=== PATIENT | female | born 1965 | race Caucasian/White ===

== ENCOUNTER 2018-02-23 15:36 | Inpatient (IN) | payer OTHER ==
[~2018-02-23] VITALS: Ht 154.9 cm; Wt 65.3 kg
--- NOTE | ~2018-02-23 | DS ---
[facility] [address] [place], [place] [address] Draft ADMISSION DATE: 03/24/2018 DISCHARGE DATE: 03/26/2018 FINAL DIAGNOSIS: At the time of discharge; avascular necrosis, right femoral head with marked collapse. PROCEDURE: Right total hip arthroplasty. HISTORY OF PRESENT ILLNESS: Family has a long history of right-sided hip pain. 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 Because she no longer got adequate relief with conservative management, she was brought to the hospital for an elective total hip arthroplasty. HOSPITAL COURSE: The patient was admitted to Day Surgery on March 24, 2018. She was taken to the operating room, where she underwent an uneventful press-fit right total hip arthroplasty using a Lincoln stem and a pinnacle cup as outlined in the operative report. Postoperatively, she has done well. She has made steady progress in physical therapy and is currently off all for a parenteral analgesics and is doing well with oral pain medication. She is going to be discharged home. Weightbearing as tolerated on the right with total hip precautions. Begin a prescription for Xarelto to be continued for DVT prophylaxis along with Oxy IR alternating with Tylenol for pain relief. We will see her back in 6 weeks with an x-ray of the involved hip. MD NEHEMIAH Stanford/MICHAEL /[id number] Copies: ~ PATIENT NAME: MAXX PURI DISCHARGE SUMMARY DATE OF : 61 REPORT #: [id number] PHYSICIAN: VU NGUYEN MD PCP: ROSY BURRELL PAC REPORT IS CONFIDENTIAL AND NOT TO BE RELEASED WITHOUT AUTHORIZATION
[~2018-02-23 15:36] MED LIST: BENTYL10 MG/1 ML IM; BENTYL10 MG/1 ML PO; BUPROPION XL300 MG PO; CIPRO500 MG PO; DICLOFENAC SODI75 MG PO; KLOR-CON20 MEQ PO; TYLENOL WITH C1 EACH PO; ZOFRAN ODT4 MG PO
[2018-03-17] MEDS ORDERED: NORCO 5-325 TA1 EACH PO (14:23)
--- NOTE | 2018-03-24 12:36 | NUR ---
03/24/18 [facility] Clarissa Gordillo 1223-PATIENT ARRIVED TO PACU ON 4L OM O2 SAT 100% RR EVEN. PATIENT REACTIVE TO VOICE OPENS EYES, VERY DROWSY BACK TO SLEEP. ADDUCTOR PILLOW IN PLACE. DRESSING TO RIGHT HIP CDI. RIGHT PALPABLE. PEDAL PULSE GOOD CAP REFILL AND WARMTH. WILL APPLY ICE TO DRESSING. SCDS BILATERAL.
--- NOTE | 2018-03-24 13:30 | NUR ---
PT ARRIVED FROM PACU, BEDSIDE REPORT. PT ALERT ORIENTED FAMILY AT BEDSIDE. PT REPORTS NO PAIN OR NAUSEA.
--- NOTE | 2018-03-24 15:23 | NUR ---
PT TOLERATING REGUALR DIET WELL
--- NOTE | 2018-03-24 16:22 | NUR ---
PT BACK TO BED AFTER AMBUALTING IN HALLS WITH PHYSICAL THERAPY. ONE PERSON WITH FWW. PT REPORTS NO PAIN OR NAUSEA.
--- NOTE | 2018-03-24 16:51 | NUR ---
PT DOES NOT FEEL THE NEED TO VOID, PT BLADDER SCANNED FOR 399ML, PT DOES NOT WANT A DOUGLAS, PT AGREES TO GET OUT OF BED IN ONE HOUR AND ATTEMPT TO VOID. WILL BLADDER SCAN AT THAT TIME IF UNABLE TO VOID
--- NOTE | 2018-03-24 17:01 | NUR ---
PT ARRIVED FROM PACU AT 1330. NO PAIN OR NAUSEA, TOLERATING REGULAR DIET, S/L, SPINAL HAS RESOLVED HAS BEEN UP WITH PHYSICAL THERAPY AMBUALTING IN HALLS. DRESSING TO RIGHT HIP IS C/D/I, V/S STABLE. HAS NOT YET VOIDED, BLADDER SCANNED FOR 399ML, WILL RE-ASSESS IN ONE HOUR. PT REPORTS SHE DOES NOT WANT A DOUGLAS.
--- NOTE | 2018-03-24 18:23 | NUR ---
PT UP TO BATHROOM VOIDED 600ML. ONE PERSON ASSIST WITH FWW. TOLERATED ACTIVITY WELL. PT REPORTS NO PAIN OR NAUSEA AT THIS TIME. DINNER ORDERED
--- NOTE | 2018-03-24 23:21 | NUR ---
PT RESTING IN BED, EYES CLOSED RR16. PT APPEARS TO BE SLEEPING COMEFORTABLY. PT ALERT TO VOICE, GABAPENTIN 300MG AND IV ABX ADMINISTERED. PT DENIES PAIN AT THIS TIME. FRESH ICE PROVIDED. FAMILY AT BEDSIDE. CALL LIGHT AND ICE WATER IN REACH. SCD'S IN PLACE, DSG TO RIGHT HIP CDI.
--- NOTE | 2018-03-25 03:43 | NUR ---
PT STATES SHE DOES NOT FEEL LIKE SHE IS ABLE TO VOID, PT BLADDER SCANNED AND BLADDER SCANNER SHOWS >360MLS. PT ENCOURAGED TO ATTEMPT TO URINATE AND AGREES. 500 MLS OF CONCENTRATED YELLOW URINE OUT AT THIS TIME. CALL LIGHT AND H20 WITHIN REACH AND PT ENCOURAGED TO DRINK MORE WATER. PT PLACED BACK INTO ABDUCTOR PILLOW AND SCDS REAPPLIED. PT GIVEN ICE TO APPLY TO SURGICAL SITE. DSG APPEARS CDI AND LE DISTAL PULSES +2. PT DENIES HAVING ANY CONCERNS OR REQUESTS AT THIS TIME AND PT FAMILY AT BEDSIDE PROVIDED WITH ANOTHER WARM BLANKET.
--- NOTE | 2018-03-25 06:05 | NUR ---
PT RESTING SUPINE IN BED, RR16. PT APPEARS TO BE SLEEPING COMFORTABLY. CALL LIGHT NAD H20 IN REACH.
--- NOTE | 2018-03-25 08:24 | OR ---
[facility] [address], [place] [address] Signed DATE OF OPERATION: 03/24/2018 SURGEON: Vu Nguyen MD PREOPERATIVE DIAGNOSIS: Avascular necrosis, right femoral head with marked collapse. POSTOPERATIVE DIAGNOSIS: Avascular necrosis, right femoral head with marked collapse. PROCEDURE: Right total hip arthroplasty. ANESTHESIA: Spinal with sedation. IMPLANTS: Five high offset Ellis stem with a -236 mm head and a 52 mm Gription [place] sector cup with a 15 and a 20 mm screw and a neutral 36 insert. WHAT WAS DONE: The patient was taken to the operating room. After anesthesia was induced and the airway gently supported, the patient was placed in the left lateral decubitus position and prepped and draped in a routine sterile fashion. A straight lateral approach was made to the right hip. Skin was divided sharply. Subcutaneous tissue was bluntly spread. Hemostasis was achieved with electrocautery. The deep fascia was incised in line with the skin incision and the Charnley retractor was placed. The anterior one-third of the gluteus was elevated off the anterior and superior portion of the greater trochanter and retracted. An anterior and superior capsulectomy were then performed. The hip was dislocated. We then used the oscillating saw to remove the head fragment. Because of severe varus collapse, there was very little neck left medially. We then removed the head and neck fragment with a large curved clamp. We then exposed the acetabulum and removed the remaining capsule and the labrum. We then excised the contents of the pulvinar. We then reamed the acetabulum with sequential hemispherical reamers. We began with a 45 to deepen the acetabulum, which was significantly narrowed and eccentric. We then reamed up to 51 mm trial, however, we are happy with the alignment, position, fit and fill. We therefore removed the trial, impacted the 52 mm Gription cup. Although we had secure fixation, we augmented it with the two screws. We then copiously irrigated the shell and I placed the neutral liner. We then rotated the proximal femur up into the incision. It was prepared with a standard box chisel and Electronically Signed By: VU NGUYEN MD 03/25/18 0824 PATIENT NAME: MAXX PURI OPERATIVE REPORT DATE OF : 61 REPORT #: [id number] PHYSICIAN: VU NGUYEN MD PCP: ROSY BURRELL PAC REPORT IS CONFIDENTIAL AND NOT TO BE RELEASED WITHOUT AUTHORIZATION [facility] [address], [place] [address] Signed reamers and rasps. We had a very snug fit with a size 5 rasps, although there was slight prominence of medially given the angle of the neck resection. We then trialed the hip and we were most happy with a high offset -2 head. They brought this back to a symmetrical leg lengths and was quite stable without any impingement. We then removed the trial components, impacted the real size 5 high offset stem. We then placed the -2 and relocated the hip. Again, we had good alignment, good position, good mobility, and excellent stability. The hip was copiously irrigated and closed in a standard fashion. A sterile dressing was applied. She was awakened and taken to the recovery room where she arrived in stable condition. Vu Nguyen MD WFB/MODL /[id number] Copies: ~ Electronically Signed By: VU NGUYEN MD 03/25/18 0824 PATIENT NAME: MAXX PURI OPERATIVE REPORT DATE OF : 61 REPORT #: [id number] PHYSICIAN: VU NGUYEN MD PCP: ROSY BURRELL PAC REPORT IS CONFIDENTIAL AND NOT TO BE RELEASED WITHOUT AUTHORIZATION
--- NOTE | 2018-03-25 09:02 | NUR ---
PT 1PA WITH WALKER TO RESTROOM AND THEN UP TO RECLINER FROM BED. PT REPORTING 4/10 RIGHT HIP PAIN. MEDICATED WITH PRN DILAUDID. DENIES NAUSEA OR OTHER CONCERNS. ORDERED BREAKFAST. CALL LIGHT WITHIN REACH.
--- NOTE | 2018-03-25 09:29 | NUR ---
PT STATES THAT SHE IS "SO TIRED" AND HAVING SOME PAIN. WOULD LIKE TO GO BACK TO BED." MINIMAL ASSIST FROM RECLINER TO BED. ABDUCTOR PILLOW AND SCD'S IN PLACE. CALL LIGHT WITHIN REACH.
--- NOTE | 2018-03-25 09:55 | NUR ---
MED REC COMPLETE
--- NOTE | 2018-03-25 10:00 | NUR ---
PT WORKING WITH PGeraldo IN ROOM.
--- NOTE | 2018-03-25 11:23 | NUR ---
PATIENT RESTING IN BED WITH EYES CLOSED. PATIENT SEEMS VERY TIRED, DR IN ROOM AT TIME AND SAID SHE WAS GOING TO TALK TO RN ABOUT TIRDNESS. WASHCLOTH GIVEN. PATIENT REFUSED OTHER ADLS AND SAID 'I JUST WANT TO LAY HERE FOR A BIT". FRESHWATER GIVEN. CALL LIGHT IN REACH. NO FURTHER NEEDS AT THIS TIME.
--- NOTE | 2018-03-25 11:45 | NUR ---
PT IN BED RESTING WITH EYES CLOSED, RESP EVEN AND UNLABORED. PT AWOKE EASILY TO VOICE. DENIES NEEDS OR CONCERNS AT THIS TIME. AT BEDSIDE. CALL LIGHT WITHIN REACH.
--- NOTE | 2018-03-25 13:16 | NUR ---
PT WAS ALICIA, IN . VISITED WITH HIM, HE WAS PLEASANT, FELT POSITIVE ABOUT PT'S PROGRESS. EXTENDED A BLESSING, WILL FOLLOW NEEDED
--- NOTE | 2018-03-25 13:22 | NUR ---
PT AMB WITH P.T. ASSISTED TO BED. PT RATING PAIN 03/20. MEDICATED WITH SCHEDULED TYLENOL AND PRN DILAUDID. CALL LIGHT WITHIN REACH.
--- NOTE | 2018-03-25 14:31 | NUR ---
PATIENT IN BED, BED SIDE. PAIENT NOT HUNGRY FOR LUNCH. FRESH WATER GIVEN. CALL LIGHT IN REACH. NO FURTHER NEEDS AT THIS TIME.
--- NOTE | 2018-03-25 15:18 | NUR ---
THIS RN IS TAKING PT OVER FOR KURT DEL CID; PT AMBULATED BACK TO HER BED WITH WALKER AND STANDBY ASSIST AT THIS TIME; PT RATES PAIN A 03/20; WILL TREAT PAIN WITH MEDICATION
--- NOTE | 2018-03-25 15:20 | NUR ---
PT AMB WITH SBA AND FWW TO RESTROOM. VOIDED WITHOUT DIFFICULTY. ENCOURAGED PO INTAKE PT HAS BEEN SLEEPING A LOT. EATING A LOT OF OUTSIDE FOOD BROUGHT IN BY FAMILY. DENIES N/V. AMB TO BED, SITTING ON EDGE OF BED WITH FAMILY. REPORT GIVEN TO RIZWANA HICKS.
--- NOTE | 2018-03-25 16:24 | NUR ---
PT PLEASANT, CALM AND COOPERATIVE SINCE TAKING PT OVER EARLIER IN SHIFT FROM OTHER RN. VS AND CONDITION REMAIN STABLE. PRN PAIN MEDICATION ADEQUATELY CONTROLLING PAIN. PT AMBULATED IN HALLWAY WITH SBA AND WALKER AT 1600 (TWO LAPS AROUND THE UNIT). PT STATES SHE IS MOTIVATED TO WORK TOWARDS DC BY WALKING HALLWAY FREQUENTLY. DRG ON RIGHT HIP REMAINS C/D/I WITH ICE PACK IN PLACE FOR COMFORT. SALINE LOCKED IV DUE TO ADEQUATE PO INTAKE; PT HAVING ADEQUATE UOP IN TOILET. LAST BM WAS 03/24/18 AM BEFORE HIP SURGERY. ALL FALL PREVENTION TECHNIQUES IN PLACE, PT CALLS APPROPRIATELY ADMISSIONS GATE ATTENDANT LIGHT. ALL QUESTIONS ANSWERED, EDUCATION REVIEWED REGARDING PT'S STAY. CALL LIGHT AND BELONGINGS WITHIN REACH. BED LOCKED IN LOWEST POSITION. WILL CONTINUE TO MONITOR.
--- NOTE | 2018-03-25 18:13 | NUR ---
PATIENT LAYING IN BED WATCHING TV, BEDSIDE. FRESHWATER GIVEN. CALL LIGHT IN REACH. NO FURTHER NEEDS AT THIS TIME.
--- NOTE | 2018-03-25 19:50 | NUR ---
IN TO ASSESS PT. PT LAYING SUPINE IN BED, PT REPORTS 8/10 PAIN TO RIGHT HIP. OXY 5MG AND SCHEDULED TYLENOL ADMINISTERED. ASSESSMENT COMPLETED. ABDUCTOR PILLOW, SCDS AND ICE APPLIED. DSG CDI TO RIGHT HIP AND CMS INTACT DISTALLY. PT STATES SHE IS COMFORTABLE AND PT GIVEN ICE WATER AND CALL LIGHT IN REACH.
--- NOTE | 2018-03-25 21:01 | NUR ---
VITALS AND I&OS DONE AND CHARTED. FRESH ICE WATER GIVEN. BEDSIDE TABLE AND CALL LIGHT WITHIN REACH. PT NEEDS NOTHING AT THIS TIME WHEN I ASKED HER.
--- NOTE | 2018-03-25 21:18 | NUR ---
HELPED PT TO THE BATHROOM AND BACK TO BED WITH HER FWW. SCD'S , WEDGE AND FRESH ICE PACK GIVEN. PT NEEDS NOTHING MORE AT THIS TIME.
--- NOTE | 2018-03-25 22:11 | NUR ---
PT RESTING SUPINE IN BED CALL IGHT IN REACH. RR18, EYES CLOSED AND PT APPEARS TO BE SLEEPING COMFORTABLY. FAMILY AT BEDSIDE. ABDUCTOR PILLOW, SCD'S AND ICE APPLIED.
--- NOTE | 2018-03-25 23:18 | NUR ---
PT RESTING SUPINE IN BED, RR16, CALL LIGHT AND H20 IN REACH AND PT APPEARS TO BE SLEEPING COMFORTABLY.
--- NOTE | 2018-03-26 01:20 | NUR ---
PT REPORTS 6/10 PAIN TO RIGHT HIP. OXYCODONE 5MG ADMINISTERED. FRESH ICE AND ICE WATER IN REACH. SCD'S ABDUCTOR PILLOW AND ICE APPLIED. WARM BLANKET PROVIDED AND NO FURTHER CONCERNS OR REQUESTS VOICED.
--- NOTE | 2018-03-26 02:04 | NUR ---
HELPED PT TO THE BATHROOM AND BACK TO BED WITH HER FWW. PT REQUESTED PAIN MEDS, I INFORMED HER RN TARYN.
--- NOTE | 2018-03-26 02:07 | NUR ---
FRESH ICE WATER GIVEN PER PT REQUEST.
--- NOTE | 2018-03-26 03:33 | NUR ---
PRN PO OXYCODONE 5MG ADMINISTERED FOR PT REPORT OF 5/10 PAIN TO RIGHT HIP. CALL LIGHT AND ICE WATER IN REACH.
--- NOTE | 2018-03-26 03:40 | NUR ---
PT ASSISTED UP TO RESTROOM WITH SBA AND FWW. PT REPORTS PAIN 5/10 AND STATES IT IS INTOLERABLE. PER PT REQUEST OXYCODONE 5MG ADMINISTERED PO. PT ASSISTED BACK INTO BED, ICE APPLIED TO SURGICAL SITE, ABDUCTOR PILLOW AND SCD'S APPLIED. CAP REFILL 1 SECOND TO BILAT LE'S AND PULSE +2 TO RIGHT LE. PT GIVEN FRESH ICE WATER AND CALL LIGHT IN REACH. OT DENIES HAVING ANY FURHTER CONCERNS OR REQUESTS.
--- NOTE | 2018-03-26 05:15 | NUR ---
PT HAD GOOD NIGHT, SLEPT MOST OF THE NIGHT. PT WAS UP PERIODICALY THROUGH THE NIGHT FOR PAIN MANAGEMENT AND TO USE RESTROOM. PT FOLLOWS PLAN OF CARE AND EXPRESSES THAT SHE WOULD LIKE TO BE DISCHARGED TODAY. PT REMAINS SBA WITH FWW, DSG TO RIGHT HIP CDI WITH CMS AT BASELINE FOR PT WITH LE CAP REFILL <2 SECONDS AND +2 PULSES TO BILAT LE'S. PT REMAINS SALINE LOCKED WITH GOOD ORAL INTAKE.
--- NOTE | 2018-03-26 06:10 | NUR ---
VITALS AND I&OS DONE AND CHARTED. HELPED PT TO THE BATHROOM AND BACK TO BED WITH HER FWW. BEDSIDE TABLE AND CALL LIGHT WITHIN REACH. PT ASKED FOR PAIN MEDS, I LET HER RN TARYN KNOW. FRESH ICE WATER AND WARM BLANKET GIVEN.
--- NOTE | 2018-03-26 06:17 | NUR ---
PT REPORTS THAT SHE HAS HAD NO APPETITE AND UPSET STOMACH AFTER TAKING OXYCODONE AND STATES SHE WOULD LIKE TO START TAKING NORCO INSTEAD. WILL PASS THIS ON IN REPORT TO PATRICK HICKS. PT HAS BEEN EATING CRACKERS AND TOLORATING PO FLUIDS WITH ADMINISTRATION OF OXYCODONE BUT STILL REPORTS UPSET STOMACH POST ADMINISTRATION.
--- NOTE | 2018-03-26 07:20 | NUR ---
RECEIVED BEDSIDE REPORT FROM MANAGER COMPLIANCE RN. PATIENT APPEARS TO BE SLEEPING IN BED. RESPIRATIONS ARE EVEN AND UNLABORED. CALL LIGHT IS WITHIN REACH.
--- NOTE | 2018-03-26 09:00 | NUR ---
MORNING ASSESSMENT COMPLETE AT THIS TIME. MORNING MEDICATIONS ADMINSITERED. PATIENT VERBILIZED UNDERSTANDING AND DENIED FURTHER QUESTIONS AT THIS TIME. DISCUSSED WITH PATIENT PLAN OF CARE. PATIENT REFUSED ABDUCTOR WEDGE. SCD'S PLACED ON PATIENT AT THIS TIME. DISCUSSED PLAN OF CARE WITH PATIENT AT BEDSIDE. PATIENT DENIES FURTHER REQUESTS OR NEEDS AT THIS TIME. CALL LIGHT WITHIN REACH.
[2018-03-26] MEDS ORDERED: ACETAMINOPHEN650 M1 PO (10:05)
[2018-03-26] MEDS ORDERED: XARELTO10 MG PO (10:05)
[2018-03-26] MEDS ORDERED: OXYCODONE HCL5 MG PO (10:07)
[2018-03-26] MEDS ORDERED: DILAUDID4 MG PO (10:08)
--- NOTE | 2018-03-26 11:09 | NUR ---
DOCTOR WENDY NOTIFIED OF PATIENT C/O ANKLE PAIN, HE REFUSED A REQUEST FOR XRAY OF THE ANKLE AT THIS TIME AND WOULD STILL LIKE PATIENT TO D/C TO HOME.
--- NOTE | 2018-03-26 12:04 | NUR ---
PATIENT CALLED AND ASKED FOR ICE WATER, SHE WAS PROVIDED WTIH A CUP OF ICE WATER. NO MORE NEEDS AT THIS TIME.
--- NOTE | 2018-03-26 13:03 | NUR ---
MET WITH PT'S -HE FELT PT WAS HEADED HOME AND SEEMED PLEASED WITH HER PROGRESS.WILL FOLLOW NEEDED
--- NOTE | 2018-03-26 13:15 | NUR ---
DISCHARGE INSTRUCTIONS AND SUMMARY COMPLETED AT THIS TIME. DISCHARGE INSTRUCTIONS DISCUSSED WITH PATIENT AT BEDSIDE WITH SPOUSE AND PATIENT'S DAUGHTER. PATIENT VERBALIZED UNDERSTANDING AND ALL QUESTIONS WERE ANSWERED APPROPERIATELY. PATIENT TRANSFERRED VIA WHEELCHAIR TO FRONT ENTRANCE AND ASSISTED INTO PERSONAL VECHICLE. SPOUSE TO DRIVE PATIENT HOME.
== END 2018-03-26 13:13 | disposition home or self-care (01) | DRG 481 ==
LOC: MS 03-24 06:55 → DSVR 03-24 06:55 → MS 03-24 09:15
PROVIDERS: ADMIT Orthopaedic Surgery
PROC: 0QS604Z Reposition Right Upper Femur with Internal Fixation Device, Open Approach (ICD-10-PCS; principal; 2018-03-24 09:15)
DX: S72.051A Unspecified fracture of head of right femur, initial encounter for closed fracture (principal); N39.0 Urinary tract infection, site not specified; W19.XXXA Unspecified fall, initial encounter; S60.222A Contusion of left hand, initial encounter; F32.9 Major depressive disorder, single episode, unspecified; B96.20 Unspecified Escherichia coli [E. coli] as the cause of diseases classified elsewhere
CPT/HCPCS: 01214; 36415; 72170; 73501; 80048; 85025; 97110; 97116; 97161; C1776; G8978; G8979; J0690; J2250; J2274; J2370; J2704; J3010; J7120

== ENCOUNTER 2024-12-08 16:00 | Emergency (ER) | payer OTHER ==
[~2024-12-08] VITALS: Ht 154.9 cm; Wt 71.1 kg
[~2024-12-08 16:00] MED LIST changes: +ACETAMINOPHEN650 M1 PO; +DILAUDID4 MG PO; +NORCO 5-325 TA1 EACH PO; +OXYCODONE HCL5 MG PO; +XARELTO10 MG PO
[2024-12-08] MEDS ORDERED: HYDROCODON-ACE1 EA10 PO (17:23)
[2024-12-08 17:30] VITALS: BP 121/61
== END 2024-12-08 17:32 | disposition home or self-care (01) ==
LOC: ED 16:00
DX: M25.551 Pain in right hip (principal); Z96.641 Presence of right artificial hip joint; Z87.891 Personal history of nicotine dependence; Z79.2 Long term (current) use of antibiotics
CPT/HCPCS: 73502; 99283

== ENCOUNTER 2025-02-02 19:54 | Emergency (ER) | payer OTHER ==
[~2025-02-02] VITALS: Ht 154.9 cm; Wt 72.2 kg
[~2025-02-02 19:54] MED LIST changes: +HYDROCODON-ACE1 EA10 PO
--- OUTSIDE RECORDS SUMMARY | 2025-02-02 20:02 | XMS ---
PreManage Notification: MAXX PURI Security Endoscopy Support Specialist Events No recent Security Events currently on file CRITERIA MET - [facility] - 2 Visits in 30 Days CARE PROVIDERS [facility]: Multi-Specialty Current FAMILY PHONE: Unknown Chris has no Care Guidelines for this patient. Mehdi VISIT COUNT (12 MO.) 3 [facility] TOTAL 3 NOTE: Visits indicate total known visits. 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
[2025-02-02 20:50] LABS: BASOPHILS 0.7 % (0.1-1.2); EOSINOPHILS 3.3 % (0.7-5.8); HEMATOCRIT 36.1 % (34.1-44.9); HEMOGLOBIN 12.3 g/dL (11.2-15.7); LYMPHOCYTES 29.6 % (19.3-51.7); MCH 31.2 PG (25.6-32.2); MCHC 34.1 g/dL (32.2-35.5); MCV 91.6 fL (79.4-94.8); MONOCYTES 8.5 % (4.7-12.5); NEUTROPHILS 57.6 % (34.0-71.1); PLATELET COUNT 241 K/uL (182-369); RBC 3.94 M/uL (3.93-5.22)
[2025-02-02] MEDS ORDERED: ondansetron HCL 4 MG/2 ML VIAL IV ONE (21:30)
[2025-02-02] MEDS ORDERED: MORPHINE SULFATE 4 MG/ML VIAL IV ONE (21:30)
[2025-02-02 21:45] LABS: ALBUMIN 3.4 g/dL (3.4-5.0); ANION GAP 12.7 (7-21); BILIRUBIN, TOTAL 0.3 mg/dL (0.2-1.0); CALCIUM 9.1 mg/dL (8.5-10.1); CREATININE, SERUM 1.05 mg/dL (0.55-1.02); POTASSIUM 3.7 mmol/L (3.5-5.1); PROTEIN, TOTAL 6.8 g/dL (6.4-8.2)
[2025-02-02] MEDS ORDERED: PERCOCET 5-3251 EACH PO (22:25)
[2025-02-02] MEDS ORDERED: OXYCODONE/ACETAMINOPHEN 1 TAB HOME.PACK PO ONE (22:30)
[2025-02-02 22:38] VITALS: BP 124/77
== END 2025-02-02 22:48 | disposition home or self-care (01) ==
LOC: ED 19:54
PROVIDERS: Family Medicine
DX: S22.42XA Multiple fractures of ribs, left side, initial encounter for closed fracture (principal); Z87.891 Personal history of nicotine dependence; Z90.49 Acquired absence of other specified parts of digestive tract; W01.0XXA Fall on same level from slipping, tripping and stumbling without subsequent striking against object, initial encounter
CPT/HCPCS: 36415; 71101; 71260; 74177; 80053; 85025; 96375; 99284-25; J2270; J2405; Q9967